=== PATIENT | male | born 1940 | race Caucasian/White ===

== ENCOUNTER → 2017-05-15 | Outpatient (CLI) | payer MEDICARE, BC | END | disposition home or self-care (01) | LOC: CDC 10:15 | DX: C61 Malignant neoplasm of prostate (principal); R94.31 Abnormal electrocardiogram [ECG] [EKG]; N35.013 Post-traumatic anterior urethral stricture; N32.81 Overactive bladder; R35.1 Nocturia | CPT/HCPCS: 93000 ==